=== PATIENT | female | born 1985 | race Caucasian/White ===

== ENCOUNTER → 2023-12-11 12:51 | Outpatient (REF) | payer BC, SELFPAY ==
[2023-12-11 13:35] LABS: % Basophils 0.4 % (0-2); % Eosinophils 0.7 % (0-6); % Immature Granulocytes 0.1 % (0-0.5); % Lymphocytes 22.1 % (20.5-51.1); % Neutrophils 72.7 % (42.2-75.2); Absolute Eosinophils 0.1 10^3/uL (0-0.7); Absolute Lymphocytes 1.6 10^3/uL (1.2-3.4); Absolute Monocytes 0.3 10^3/uL (0.1-0.6); Absolute Neutrophils 5.3 10^3/uL (1.4-6.5); Hematocrit 41.9 % (37.0-47.0); Hemoglobin 14.6 g/dL (12.0-16.0); Mean Corp Hgb Conc. 34.8 g/dL (33.0-37.0); Mean Corpuscular Hgb 28.9 pg (27.0-31.0); Mean Platelet Volume 10.6 fL (7.4-10.4); Nucleated Red Blood Cells % 0 %; Platelet Count 279 10^3/uL (130-400); Red Blood Cell Count 5.05 10^6/uL (4.20-5.40); Red Cell Dist. Width 11.9 % (11.5-14.5); White Blood Cell Count 7.3 10^3/uL (4.8-10.8)
[2023-12-11 14:44] LABS: Vitamin D, 25-OH*** 71.6 ng/mL (30-80)
[2023-12-11 14:58] LABS: TSH Reflex To Free T4 1.56 uIU/ml (0.47-4.68)
[2023-12-11 15:02] LABS: Ferritin 50.7 ng/ml (6.24-137)
[2023-12-11 15:17] LABS: Vitamin B12 803 pg/ml (239-931)
[2023-12-11 15:23] LABS: ALT (SGPT) 16 U/L (0-35); AST (SGOT) 27 U/L (14-36); Alkaline Phosphatase 58 U/L (38-126); Blood Urea Nitrogen 13 mg/dl (7-17); Carbon Dioxide 28 mmol/L (22-30); Chloride 99 mmol/L (98-107); Glucose 91 mg/dl (70-99); Magnesium 2.3 mg/dl (1.6-2.3); Potassium 4.3 mmol/L (3.5-5.1); Sodium 136 mmol/L (135-145); Total Bilirubin 0.5 mg/dl (0.2-1.3); Total Protein 8.3 g/dl (6.3-8.2); eGFR > 60.00
== END ==
LOC: RCS 12:51
PROVIDERS: ATTENDING PHYSICIAN Physician Assistant; FAMILY PHYSICIAN Family Medicine; REFERRING PHYSICIAN Student in an Organized Health Care Education/Training Program
DX: R00.2 Palpitations (principal)
CPT/HCPCS: 36415; 80053; 82306; 82607; 82728; 83735; 84443; 85025; 93225; 93226

== ENCOUNTER → 2023-12-17 15:56 | Outpatient (REF) | payer BC, SELFPAY | LOC: RCS 15:56 | PROVIDERS: ATTENDING PHYSICIAN Internal Medicine Cardiovascular Disease; FAMILY PHYSICIAN Family Medicine | DX: R00.2 Palpitations (principal); I49.3 Ventricular premature depolarization | CPT/HCPCS: 93306 ==

== ENCOUNTER → 2024-01-26 06:24 | Day surgery (SDC) | payer BC, SELFPAY | LOC: GI 06:24 | PROVIDERS: ATTENDING PHYSICIAN Internal Medicine Gastroenterology; FAMILY PHYSICIAN Family Medicine | DX: K29.50 Unspecified chronic gastritis without bleeding (principal); K20.90 Esophagitis, unspecified without bleeding; K31.89 Other diseases of stomach and duodenum; R13.10 Dysphagia, unspecified; R12 Heartburn | CPT/HCPCS: 43239; 88305; 88342 ==

== ENCOUNTER → 2024-02-05 09:43 | Outpatient (REF) | payer BC, SELFPAY | LOC: WDC 09:43 | PROVIDERS: ATTENDING PHYSICIAN Surgery | DX: Z12.31 Encounter for screening mammogram for malignant neoplasm of breast (principal); R92.8 Other abnormal and inconclusive findings on diagnostic imaging of breast; Z80.3 Family history of malignant neoplasm of breast | CPT/HCPCS: 76642; 77063; 77067 ==

== ENCOUNTER → 2024-02-29 08:47 | Outpatient (REF) | payer BC, SELFPAY ==
[2024-02-29 10:17] LABS: HDL Cholesterol 67 mg/dl; LDL Cholesterol, Calculated 104 mg/dl; Total Cholesterol 182 mg/dl (50-199); Triglyceride 58 mg/dl (10-149); Very Low Density Lipoprotein 11 mg/dl (0-30)
== END ==
LOC: REG 08:47
PROVIDERS: ATTENDING PHYSICIAN Family Medicine
DX: Z00.00 Encounter for general adult medical examination without abnormal findings (principal)
CPT/HCPCS: 36415; 80061

== ENCOUNTER → 2024-09-01 14:52 | Outpatient (REF) | payer BC, SELFPAY | LOC: WDC 14:52 | PROVIDERS: ATTENDING PHYSICIAN Surgery | DX: R92.8 Other abnormal and inconclusive findings on diagnostic imaging of breast (principal) | CPT/HCPCS: 76642 ==

== ENCOUNTER → 2024-09-07 11:25 | Outpatient (REF) | payer BC, SELFPAY ==
--- NOTE | 2024-09-07 15:46 | OID.BR.INTR ---
[facility] Navigator - Initial
- -
Date of Contact: 09/07/24
Met with patient. Patient given written information on navigator services available at [facility]. Will follow up as needed per protocol.
== END ==
LOC: WDC 11:25
PROVIDERS: ATTENDING PHYSICIAN Surgery
DX: N63.11 Unspecified lump in the right breast, upper outer quadrant (principal)
CPT/HCPCS: 88305; 19083; A4648

== ENCOUNTER → 2024-10-05 13:19 | Outpatient (REF) | payer BC, SELFPAY | LOC: CLAB 13:19 | PROVIDERS: Pathology Anatomic Pathology & Clinical Pathology; ATTENDING PHYSICIAN General Practice | DX: D48.5 Neoplasm of uncertain behavior of skin (principal) | CPT/HCPCS: 88305 ==

== ENCOUNTER → 2024-10-11 13:58 | Outpatient (REF) | payer BC, SELFPAY | LOC: RAD 13:58 | PROVIDERS: ATTENDING PHYSICIAN Physician Assistant Medical | DX: Z86.39 Personal history of other endocrine, nutritional and metabolic disease (principal) | CPT/HCPCS: 76536 ==

== ENCOUNTER → 2025-02-20 16:35 | Outpatient (REF) | payer BC, SELFPAY | LOC: MRI 3T 16:35 | PROVIDERS: ATTENDING PHYSICIAN Nurse Practitioner Adult Health; FAMILY PHYSICIAN Physician Assistant Medical | DX: Z15.89 Genetic susceptibility to other disease (principal); Z80.3 Family history of malignant neoplasm of breast; Z91.89 Other specified personal risk factors, not elsewhere classified; R92.2 Inconclusive mammogram | CPT/HCPCS: 77049; A9585 ==

== ENCOUNTER → 2025-02-23 16:19 | Outpatient (REF) | payer BC, SELFPAY | LOC: WDC 16:19 | PROVIDERS: ATTENDING PHYSICIAN Nurse Practitioner Adult Health; FAMILY PHYSICIAN Physician Assistant Medical | DX: Z12.31 Encounter for screening mammogram for malignant neoplasm of breast (principal); Z15.89 Genetic susceptibility to other disease; Z80.3 Family history of malignant neoplasm of breast; Z91.89 Other specified personal risk factors, not elsewhere classified; R92.2 Inconclusive mammogram | CPT/HCPCS: 77063; 77067 ==

== ENCOUNTER → 2025-04-15 07:07 | Outpatient (REF) | payer BC, SELFPAY ==
[2025-04-15 08:08] LABS: Hematocrit 38.4 % (37.0-47.0); Hemoglobin 13.3 g/dL (12.0-16.0); Mean Corp Hgb Conc. 34.6 g/dL (33.0-37.0); Mean Corpuscular Volume 85.3 fL (81.0-99.0); Nucleated Red Blood Cells % 0 %; Platelet Count 259 10^3/uL (130-400); Red Cell Dist. Width 11.5 % (11.5-14.5)
[2025-04-15 09:06] LABS: ALT (SGPT) 12 U/L (0-35); AST (SGOT) 18 U/L (14-36); Albumin 4.2 g/dl (3.5-5.0); Alkaline Phosphatase 38 U/L (38-126); Blood Urea Nitrogen 18 mg/dl (7-17); Calcium 9.6 mg/dl (8.4-10.2); Carbon Dioxide 32 mmol/L (22-30); Chloride 102 mmol/L (98-107); Glucose 56 mg/dl (70-99); HDL Cholesterol 62 mg/dl; LDL Cholesterol, Calculated 90 mg/dl; Potassium 4.3 mmol/L (3.5-5.1); Sodium 139 mmol/L (135-145); Total Protein 6.8 g/dl (6.3-8.2); Very Low Density Lipoprotein 12 mg/dl (0-30); eGFR > 60.00
[2025-04-15 09:31] LABS: TSH 1.84 uIU/ml (0.47-4.68)
== END ==
LOC: REG 07:07
PROVIDERS: ATTENDING PHYSICIAN Physician Assistant Medical
DX: Z00.00 Encounter for general adult medical examination without abnormal findings (principal)
CPT/HCPCS: 36415; 80053; 80061; 84443; 85025